=== PATIENT | male | born 1960 ===

== ENCOUNTER 2020-12-02 18:01 | Emergency (ER) | payer OTHER ==
[2020-12-02 20:18] LABS: Basophils % (Auto) 0.3 % (0.0-1.8); Eosinophils % (Auto) 0.1 % (0.0-4.3); Hematocrit 41.9 % (35.5-45.6); Hemoglobin 13.5 gm/dl (11.8-15.2); Lymphocytes # (Auto) 1.7 K/mm3 (1.2-5.4); Mean Corpuscular HGB Conc 32 % (32-34); Mean Corpuscular Volume 86 fl (84-94); Monocytes # (Auto) 0.2 K/mm3 (0.0-0.8); Platelet Count 152 K/mm3 (140-440); Red Blood Count 4.87 M/mm3 (3.65-5.03); Red Cell Distribution Width 15.5 % (13.2-15.2)
--- NOTE | 2020-12-02 20:26 | XRay Report ---
CHEST 1 VIEW 12/02/2020 7:17 PM INDICATION / CLINICAL INFORMATION: sob. COMPARISON: None available. FINDINGS: SUPPORT DEVICES: None. HEART / MEDIASTINUM: No significant abnormality. LUNGS / PLEURA: No significant pulmonary or pleural abnormality. No pneumothorax. ADDITIONAL FINDINGS: No significant additional findings. IMPRESSION: 1. No acute findings. Signer Name: Ramiro Morillo DO Signed: 12/02/2020 8:21 PM Workstation Name: [id number]
[2020-12-02 20:34] LABS: Alanine Aminotransferase 13 units/L (7-56); Albumin 3.1 g/dL (3.9-5); BUN/Creatinine Ratio 8; Blood Urea Nitrogen 9 mg/dL (9-20); Calcium 8.2 mg/dL (8.4-10.2); Hemolysis Index 70
[2020-12-02] MEDS ORDERED: SODIUM CHLORIDE 0.9% 1000 ML 1,000 ML IV ONE (20:50)
[2020-12-02] MEDS ORDERED: ACETAMINOPHEN 500 MG TAB PO ONE (20:51)
[2020-12-02] MEDS ORDERED: ONDANSETRON 4 MG/2 ML INJ IV ONE (20:51)
--- NOTE | 2020-12-02 21:25 | Emergency Department Report ---
ED Shortness of Breath HPI - General Chief Complaint: Dyspnea/Respdistress Stated Complaint: COUGH, RUNNY STOOLS Time Seen by Provider: 12/02/20 21:10 Source: patient Mode of arrival: Ambulatory Limitations: No Limitations - History of Present Illness Initial Comments: Patient is 60 years old morbidly obese male with history of hypertension and diabetes. Patient presented to the ER complaining of shortness of breath, cough, fever and generalized weakness. Patient stated that symptoms been going on for 3 days. Patient denied any chest pain. Patient also reported diarrhea. He stated that he has been nauseated but no vomiting. Patient stated that he did not receive COVID-19 vaccine. MD Complaint: shortness of breath, cough -: days(s) Severity: moderate Context: recent URI - Related Data Allergies Allergy/AdvReac Type Severity Reaction Status Date / Time bee sting AdvReac Swelling Uncoded 12/02/20 21:20 ED Review of Systems ROS: Stated complaint: COUGH, RUNNY STOOLS Other details as noted in HPI Comment: All other systems reviewed and negative Constitutional: chills, fever Respiratory: cough, shortness of breath, SOB with exertion, SOB at rest. denies: wheezing Cardiovascular: dyspnea on exertion. denies: chest pain, palpitations Gastrointestinal: nausea, diarrhea. denies: abdominal pain, vomiting Musculoskeletal: denies: back pain Neurological: weakness. denies: headache, numbness, paresthesias, confusion, abnormal gait ED Past Medical Hx - Past Medical History Previous Medical History?: Yes Hx Hypertension: Yes Hx Diabetes: Yes - Surgical History Past Surgical History?: No - Social History Smoking Status: Never Smoker Substance Use Type: None ED Physical Exam - General Limitations: No Limitations General appearance: alert, in no apparent distress - Head Head exam: Present: atraumatic, normocephalic, normal inspection - Eye Eye exam: Present: normal appearance, PERRL - ENT ENT exam: Present: mucous membranes dry - Neck Neck exam: Present: normal inspection, full ROM. Absent: tenderness, meningismus - Respiratory Respiratory exam: Present: normal lung sounds bilaterally - Cardiovascular Cardiovascular Exam: Present: regular rate, normal rhythm, normal heart sounds - GI/Abdominal GI/Abdominal exam: Present: soft, normal bowel sounds. Absent: distended, tenderness, guarding, rebound, rigid, organomegaly, mass, bruit, pulsatile mass, hernia - Extremities Exam Extremities exam: Present: normal inspection, full ROM, normal capillary refill. Absent: tenderness, pedal edema, joint swelling, calf tenderness - Back Exam Back exam: Present: normal inspection, full ROM. Absent: CVA tenderness (R), CVA tenderness (L) - Neurological Exam Neurological exam: Present: alert, oriented X3, CN II-XII intact, normal gait, reflexes normal. Absent: motor sensory deficit - Psychiatric Psychiatric exam: Present: normal mood - Skin Skin exam: Present: warm, intact, normal color ED Course Vital Signs 12/02/20 12/02/20 12/02/20 19:02 20:24 20:30 Temperature 102.5 F H Pulse Rate 96 H 96 H 95 H Respiratory 20 21 25 H Rate Blood Pressure 128/80 139/66 O2 Sat by Pulse 96 95 95 Oximetry 12/02/20 12/02/20 12/02/20 20:46 21:00 21:16 Temperature Pulse Rate 94 H 95 H 93 H Respiratory 13 18 17 Rate Blood Pressure 157/76 157/76 165/88 O2 Sat by Pulse 94 93 94 Oximetry 12/02/20 12/02/20 12/02/20 21:30 21:45 22:01 Temperature Pulse Rate 101 H 94 H Respiratory 18 13 Rate Blood Pressure 165/88 157/76 163/105 O2 Sat by Pulse 94 93 93 Oximetry 12/02/20 12/02/20 12/02/20 22:15 22:31 22:45 Temperature Pulse Rate Respiratory Rate Blood Pressure 163/105 176/101 176/101 O2 Sat by Pulse 92 95 94 Oximetry ED Medical Decision Making - Lab Data Result diagrams: 12/02/20 19:58 12/02/20 19:58 - EKG Data -: EKG Interpreted by Ak EKG shows normal: sinus rhythm Rate: normal - EKG Data Interpretation: no acute changes - Radiology Data Radiology results: report reviewed - Medical Decision Making Patient is 60 years old morbidly obese male with history of hypertension and diabetes. Patient presented to the ER complaining of shortness of breath, cough, fever and generalized weakness. Patient stated that symptoms been going on for 3 days. Patient denied any chest pain. Patient also reported diarrhea. He stated that he has been nauseated but no vomiting. Patient stated that he did not receive COVID-19 vaccine. Patient oxygen saturation remained above ninety-five even after walking for approximately 5 minutes. Patient received Tylenol for his fever. Labs reviewed and is unremarkable. Chest x-ray showed no evidence of pneumonia. Patient found to have a blood glucose of three hundred fifteen. Patient received 5 units of regular insulin and another 8 units. Patient stated that he is feeling much better. Patient advised to follow-up with his primary doctor in the next 2 to 3 days and to return to the ER if he develop any new symptoms. Critical care attestation.: If time is entered above; I have spent that time in minutes in the direct care of this critically ill patient, excluding procedure time. ED Disposition Clinical Impression: Suspected COVID-19 virus infection, Fever, Acute hyperglycemia Disposition: 01 HOME / SELF CARE / HOMELESS Is pt being admited?: No Condition: Stable Instructions: Hyperglycemia, [id number], Fever, Adult, [id number], COVID-19 Referrals: PRIMARY CARE, [Referring] - 3-5 Days
[2020-12-02 23:09] LABS: Bilirubin,Urine NEG (Negative); Blood,Urine MOD (Negative); Color,Urine Amber (Yellow); Mucus,Urine FEW /HPF
[2020-12-03] MEDS ORDERED: INSULIN REGULAR, HUMAN 100 UNITS/1 ML ONE ×4 (00:44→02:08)
[2020-12-03] MEDS ORDERED: INSULIN REGULAR, HUMAN 100 UNITS/1 ML SUB-Q ONE ×2 (00:50→02:10)
[2020-12-03] MEDS ORDERED: INSULIN NPH/REGULAR 70/30 INJ SUB-Q ONE (00:50)
[2020-12-03 02:56] LABS: Protein,Urine >500 mg/dL (Negative)
[2020-12-03 03:18] VITALS: BP 166/90
--- NOTE | 2020-12-03 10:07 | Electrocardiograph Report ---
[facility] Test Date: 2020-12-02 Test Time: 20:45:35 Pat Name: KIM RAPHAEL Department: Room: Gender: M Reading Tutor: [facility] : 1960 Requested By: TRI BEARDEN Order Number: [id number] Reading MD: Nicola Gloria Measurements Intervals [place] Rate: 99 P: 47 KS: 165 QRS: 15 QRSD: 88 T: 6 QT: 361 QTc: 463 Interpretive Statements Sinus rhythm No previous ECG available for comparison Electronically Signed On 12-03-2020 10:06:13 EDT by Nicola Gloria
== END 2020-12-03 03:30 | disposition home or self-care (01) ==
LOC: ED 18:01
DX: R50.9 Fever, unspecified (principal); E11.65 Type 2 diabetes mellitus with hyperglycemia; Z20.822 Contact with and (suspected) exposure to COVID-19; I10 Essential (primary) hypertension; Z91.030 Bee allergy status
CPT/HCPCS: 36415; 71045; 80053; 81001; 82962; 84484; 85025; 93005; 96361; 96372; 96374; 99284; J2405; J7030; J1815